=== PATIENT | female | born 1985 | race Two or more races ===

== ENCOUNTER 2018-11-06 13:45 | Inpatient (IN) | payer OTHER ==
[~2018-11-06] VITALS: Ht 157.5 cm; Wt 3.2 kg
[2018-11-06] MEDS ORDERED: PRENATABS RX T1 EACH PO (15:54)
[2018-11-15] MEDS ORDERED: CODE1TAB37 PO (11:37)
== END 2018-11-15 12:18 | disposition home or self-care (01) | DRG 788 ==
LOC: OB/GYN 11-12 07:00 → O/R 11-12 08:20 → OB/GYN 11-12 13:45
PROVIDERS: ADMIT Obstetrics & Gynecology
PROC: 4A1HXCZ Monitoring of Products of Conception, Cardiac Rate, External Approach (ICD-10-PCS; 2018-11-12)
PROC: 4A033R1 Measurement of Arterial Saturation, Peripheral, Percutaneous Approach (ICD-10-PCS; 2018-11-12)
PROC: 10D00Z1 Extraction of Products of Conception, Low, Open Approach (ICD-10-PCS; principal; 2018-11-12 07:00)
DX: O34.211 Maternal care for low transverse scar from previous cesarean delivery (principal); O75.82 Onset (spontaneous) of labor after 37 completed weeks of gestation but before 39 completed weeks gestation, with delivery by (planned) cesarean section; Z3A.39 39 weeks gestation of pregnancy; Z37.0 Single live birth